=== PATIENT | female | born 1955 | race Caucasian/White ===

== ENCOUNTER → 2017-05-21 15:06 | Outpatient (CLI) | payer OTHER, SELFPAY ==
--- NOTE | 2017-05-21 15:14 | XR_ITS ---
XR foot LT min 3V HISTORY: ITS.REASON: CALCANEAL SPUR OF LEFT FOOT ORDERING PHYSICIAN: Umu Carvalho MD PATIENT AGE: 62 years COMPARISON: None FINDINGS: No fracture or dislocation. No lytic or blastic change. There is normal mineralization.. The joint spaces are well-preserved. No significant degenerative/arthritic changes. No erosive changes evident. There is a small calcaneal spur of approximately 3 mm with no obvious erosive change. IMPRESSION: Small calcaneal spur otherwise negative left foot
== END ==
PROVIDERS: PCP Family Medicine; Visit Provider Family Medicine
DX: M77.32 Calcaneal spur, left foot (principal)
CPT/HCPCS: 73630

== ENCOUNTER → 2018-02-19 16:42 | Outpatient (CLI) | payer OTHER, SELFPAY ==
--- NOTE | 2018-02-19 16:47 | MM_ITS ---
MM Dig screening mamm BI w/CAD ORDERING PHYSICIAN : Umu Carvalho MD PATIENT AGE: 62 years GENDER: Female COMPARISON: March [id number], May INDICATION: ITS.REASON: SCREENING. Does take estrogen no new complaints. Family history. Sister with breast cancer age 40. TECHNIQUE: Standard CC and MLO images were obtained. Additional axillary cc views bilateral R2 CAD reviewed. FINDINGS: Moderately dense breast pattern bilaterally. It mammography slight decreased sensitivity in breast moderately dense character. Overall Stable appearance with stable fibroglandular pattern with no new areas of significant concern.. Dominant nor suspicious mass. No suspicious calcifications. RIGHT BREAST:No significant findings. Follow-up one year LEFT BREAST: . Stable density retroareolar region on MLO view. No new areas of concern. IMPRESSION: Stable bilateral mammogram no new areas of concern BI-RADS Category: 2 Benign Finding(s) RECOMMENDED FOLLOW-UP: 1YR 1 YEAR FOLLOW-UP (A letter has been sent to the patient regarding results of the study.)
== END ==
PROVIDERS: PCP Family Medicine; Visit Provider Family Medicine
DX: Z12.31 Encounter for screening mammogram for malignant neoplasm of breast (principal); N64.9 Disorder of breast, unspecified
CPT/HCPCS: 77067

== ENCOUNTER → 2019-03-17 10:02 | Outpatient (CLI) | payer MEDICARE, BC, SELFPAY ==
--- NOTE | 2019-03-17 10:07 | MM_ITS ---
PROCEDURE: MM DIG SCREENING MAMM BI W/CAD CLINICAL INDICATION: SCREENING There is a history of breast cancer in patient's sister diagnosed at age 40. COMPARISON: [facility] DIG MAMM-SCREEN MANUEL from 05/29/2015 [facility] DIG MAMM-SCREEN MANUEL W/CAD from 01/06/2017 [facility] MM Dig screening mamm BI w/CAD from 02/19/2018 TECHNIQUE: Standard CC and MLO images were obtained. R2 CAD reviewed. FINDINGS: Prominent somewhat heterogenic fibroglandular densities are seen in the central portions of both breasts. The findings of bilateral and symmetrical. There is no new or suspicious lesion in either breast and no suspicious microcalcifications. IMPRESSION: Moderately dense parenchymal pattern with no suspicious lesions seen BI-RAD Category: 1 Negative FOLLOW-UP: 1YR 1 Year Follow-up (A letter has been sent to the patient regarding results of the study.) Dictated by: Dr. Mack Bernabe MD 03/20/2019 09:[address] Mack Bernabe MD in [place] 03/20/2019 09:47
== END ==
PROVIDERS: PCP Family Medicine; Visit Provider Family Medicine
DX: Z12.31 Encounter for screening mammogram for malignant neoplasm of breast (principal)
CPT/HCPCS: 77067

== ENCOUNTER → 2019-06-17 11:17 | Outpatient (CLI) | payer MEDICARE, BC, SELFPAY ==
--- NOTE | 2019-06-17 11:29 | XR_ITS ---
PROCEDURE: XR CHEST 2V CLINICAL HISTORY: ELEVATED WHITE BLOOD CELL, FEVER COMPARISON: No exams were available for comparison FINDINGS: The cardiomediastinal silhouette and pulmonary vascularity are within normal limits. The lungs are clear without infiltrates, suspicious nodules, or pleural effusions. No acute bony abnormalities. IMPRESSION: No acute findings. Dictated by: Dr. Mack Bernabe MD 06/17/2019 11:[address] Mack Bernabe MD in [place] 06/17/2019 11:54
== END ==
PROVIDERS: PCP Family Medicine; Visit Provider Family Medicine
DX: D72.828 Other elevated white blood cell count (principal); R50.9 Fever, unspecified
CPT/HCPCS: 71046

== ENCOUNTER → 2019-07-05 09:58 | Outpatient (CLI) | payer MEDICARE, BC, SELFPAY ==
--- NOTE | 2019-07-05 10:03 | XR_ITS ---
PROCEDURE: XR THORACIC SPINE 2V CLINICAL INDICATION: BACK PAIN COMPARISON: No exams were available for comparison FINDINGS: Normal alignment. No fracture or dislocation. There are mild degenerative changes in the midthoracic spine. No lytic or blastic change. IMPRESSION: Mild degenerative changes midthoracic spine otherwise negative Dictated by: Davide Saha MD 07/05/2019 13:10 Electronically signed by Davide Saha MD in [place] 07/05/2019 13:10
== END ==
PROVIDERS: PCP Family Medicine; Visit Provider Family Medicine
DX: M54.6 Pain in thoracic spine (principal)
CPT/HCPCS: 72070

== ENCOUNTER → 2019-07-19 15:22 | Outpatient (CLI) | payer MEDICARE, BC, SELFPAY ==
--- NOTE | 2019-07-22 10:51 | PC.NURSE ---
Notified Dr Cowan's office of negative COVID test. Notified patient at this time of negative results as well. Results faxed to [facility] at this time.
[2019-07-22 15:24] LABS: Covid-19 Nasal PCR Sendout Lex NOT DETECTED
== END ==
PROVIDERS: Visit Provider Family Medicine
DX: R05 Cough (principal)

== ENCOUNTER → 2019-07-26 12:58 | Outpatient (CLI) | payer MEDICARE, BC, SELFPAY ==
--- NOTE | 2019-07-26 13:12 | CT_ITS ---
PROCEDURE: CT ABDOMEN PELVIS WO/W CON CLINICAL INDICATION: ABD PAIN,NAUSEA Intermittent lower and mid abdominal pain COMPARISON: No exams were available for comparison TECHNIQUE: IV Contrast: 75ML OPTIRAY 350 Oral Contrast none Axial images obtained with sagittal and coronal reformats. All CT scans at the facility use one or more dose reduction, viz: automated exposure control, ma/kV adjustment per patient size (including targeted exams where dose is matched to indication, i.e. head), or iterative reconstruction technique. FINDINGS: LOWER THORAX: There are mild atelectatic or fibrotic changes in the right lung base. ABDOMEN & PELVIS: The the liver, gallbladder spleen and adrenal glands are unremarkable. There is a small hypodensity in the mid aspect of the body of the pancreas at 4 mm consistent with a small cystic lesion which is nonspecific. There is a cluster small stones in the mid aspect of the right kidney measuring up to 4 mm with some cortical scarring peripheral to this region. There is a small right renal cyst at 5 mm. There are mildly prominent retroperitoneal lymph nodes measuring up to 2 cm in the aortocaval area. There is irregular increased soft tissue density along the anterior abdominal wall consistent with omental mass/cake which spans a with of approximately 14 cm and measures up to 2 cm in thickness consistent with metastatic disease to the omentum. Omental involvement with soft tissue lesions also present lateral to the [place] flexure and in the left upper quadrant laterally. There is no evidence of bowel obstruction. No evidence of appendicitis. There is diffuse colonic diverticulosis but no evidence of diverticulitis. There is a complex central pelvic mass having both cystic and solid components with enlargement of both ovaries the right larger than left. The right adnexal cystic and solid mass measures up to 10 cm cephalad caudad and 9 cm AP. The left adnexal mass measures up to 5.3 cm AP and 6 cm cephalad caudad. These are inseparable from the uterus. There is a small amount of fluid in the pelvis. No acute bony findings. No lytic or blastic bony lesions identified. IMPRESSION: 1. Complex bilateral cystic and solid adnexal masses inseparable from the uterus along with omental masses and retroperitoneal adenopathy consistent with neoplasm. This could be either ovarian carcinoma with metastatic disease to the mesenteries and retroperitoneal lymph nodes. The adnexal masses could also be due to metastatic disease to the ovaries/Krukenberg tumor as well as the omentum and retroperitoneal lymph nodes. Gynecological/surgical consult suggested. 2. Other nonacute findings as described above including a 4 mm nonspecific cystic lesion of the pancreas, right nephrolithiasis and diffuse colonic diverticulosis without diverticulitis. Dictated by: Davide Saha MD 07/27/2019 10:30 Electronically signed by Davide Saha MD in [place] 07/27/2019 10:30
[2019-07-26 13:23] LABS: Blood Urea Nitrogen 10 mg/dl (7-17); Estimated Glomerular Filt Rate 72 ml/min (>60); GFR (African American) 87 ML/MIN (>60)
== END ==
PROVIDERS: Visit Provider Family Medicine
DX: R10.9 Unspecified abdominal pain (principal); R11.0 Nausea
CPT/HCPCS: 36415; 74178; 82565; 84520; Q9967

== ENCOUNTER → 2020-02-15 12:57 | Outpatient (CLI) | payer MEDICARE, BC, SELFPAY ==
--- NOTE | 2020-02-15 13:01 | CT_ITS ---
PROCEDURE: CT ABDOMEN PELVIS W CON CLINICAL INDICATION: ABD PAIN Mid epigastric pain through the pelvis. History of ovarian cancer COMPARISON: CT CT ABDOMEN PELVIS WO/W CON from 07/26/2019 TECHNIQUE: IV Contrast: 75ML Isovue 370 Oral Contrast None Axial images obtained with sagittal and coronal reformats. All CT scans at the facility use one or more dose reduction, viz: automated exposure control, ma/kV adjustment per patient size (including targeted exams where dose is matched to indication, i.e. head), or iterative reconstruction technique. FINDINGS: LOWER THORAX: Chronic changes are present in the right lung base. ABDOMEN & PELVIS: There are several subtle slight hypodense lesions of the liver which have developed since 07/26/2019 suspicious for metastatic disease. The largest lesion is 1.8 cm and is in the medial segment of the left hepatic lobe segment 8. A 7 mm hypodense lesion is present in the right hepatic lobe and an additional 1.7 cm lesion in the right hepatic lobe anteriorly and 1 cm lesion right hepatic lobe anteriorly. The spleen, adrenal glands, pancreas, have an unremarkable appearance. There are 3 small calculi in the mid polar region of the right kidney with some adjacent cortical scarring. There is a retro aortic left renal vein is a normal variant. There is a mild amount of retained colonic feces. No intestinal obstruction or free air is evident. There are scattered colonic diverticula. No evidence of diverticulitis. Small amount fluid is present in the pelvis. There are post hysterectomy changes. Postsurgical changes are present involving the anterior abdominal wall with some diastasis noted in the supraumbilical region. There was previously noted some omental thickening which is not identified on today's exam. There are some unopacified bowel loops noted which could obscure or mimic pathology. No acute bony findings. IMPRESSION: 1. There are 4 new hypodense lesions of the liver suspicious for metastatic foci. 2. Interval hysterectomy and bilateral oophorectomy. There is a small amount fluid in the pelvis. Previously noted omental thickening is no longer apparent. 3. Postsurgical changes of the anterior abdominal wall with some minimal diastasis of the abdominal wall superior to the umbilicus. Dictated by: Davide Saha MD 02/15/2020 14:36 Davide Saha MD in [place] 02/15/2020 14:36
== END ==
PROVIDERS: PCP Family Medicine; Visit Provider Family Medicine
DX: R10.9 Unspecified abdominal pain (principal)
CPT/HCPCS: 74177; Q9967

== ENCOUNTER → 2020-03-10 08:38 | Outpatient (CLI) | payer MEDICARE, BC, SELFPAY ==
[2020-03-10] VITALS (13 sets, daily range): BP systolic 99–134; BP diastolic 40–86; PULSE 70–100; RESP 16–17; TEMP 36.6–37.4; O2SAT 95–99; BMI 29.1
--- NOTE | 2020-03-10 09:47 | PC.NURSE ---
blood consent obtained.
[2020-03-10 15:14] LABS: Hematocrit 30.6 % (37.0-47.0); Hemoglobin 9.2 g/dL (12.2-16.2)
== END ==
LOC: LAB 08:40 → INF 09:31
PROVIDERS: PCP Family Medicine; Visit Provider Family Medicine
DX: D64.9 Anemia, unspecified (principal)
CPT/HCPCS: 36415; 85014; 85018; 86850; P9016

== ENCOUNTER 2020-03-17 13:53 | Inpatient (IN) | payer MEDICARE, BC, SELFPAY ==
[2020-03-17] VITALS (9 sets, daily range): BP systolic 100–137; BP diastolic 53–82; PULSE 86–111; RESP 15–24; TEMP 36.4–38.1; O2SAT 90–98; BMI 29.8; BMI 30.2
--- NOTE | 2020-03-17 14:02 | XR_ITS ---
PROCEDURE: XR CHEST PORTABLE CLINICAL HISTORY: weakness Chest pain COMPARISON: CR XR CHEST 2V from 06/17/[address] ABDOMEN PELVIS W CON from 02/15/2020 FINDINGS: The cardiomediastinal silhouette and pulmonary vascularity are within normal limits. There is a small left pleural effusion which has developed in the interval. There is some mild atelectatic change the left lower lung zone laterally. There is some density in the right lung base probably related to vascular crowding from the low lung volumes. Upper lobes are clear. No acute bony abnormalities. IMPRESSION: New small left pleural effusion with left basilar atelectasis Dictated by: Davide Saha MD 03/17/2020 14:28 Davide Saha MD in [place] 03/17/2020 14:28
[2020-03-17 14:20] LABS: Adenovirus F 40/41, stool Not Detected (NotDetected); Appearance,Urine CLEAR (Clear); Astrovirus Not Detected (NotDetected); Bilirubin,Urine Negative (Negative); Blood, Urine 2+ (Negative); Campylobacter Not Detected (NotDetected); Clostridium Difficile A/B, PCR Not Detected (NotDetected); Color,Urine YELLOW (Yellow); Cryptosporidium Not Detected (NotDetected); Cyclospora Cayetanesis Not Detected (NotDetected); Entamoeba histolytica Not Detected (NotDetected); Enteroaggregative E coli Not Detected (NotDetected); Enteropathogenic E coli Not Detected (NotDetected); Enterotoxigenic E coli Not Detected (NotDetected); Giardia lamblia Not Detected (NotDetected); Glucose,Urine (UA) Negative (Negative); Ketones,Urine Negative (Negative); Leukocyte Esterase,Urine Negative (Negative); Microscopic, Urine URINE MICROSCOPIC (MICROSCOPIC); Nitrate,Urine Negative (Negative); Norovirus Not Detected (NotDetected); PH,Urine 6.5 (5.0-8.5); Plesimonas Shigalloides, PCR Not Detected (NotDetected); Protein,Urine Negative (Negative); Rotavirus A Not Detected (NotDetected); Salmonella, PCR Not Detected (NotDetected); Sapovirus Not Detected (NotDetected); Shiga-like toxin E coli Not Detected (NotDetected); Shigella Enterovasive E coli Not Detected (NotDetected); Specific Gravity, Urine <= 1.005 (1.005-1.030); Urobilinogen,Urine 0.2 EU/dl (0.2); Vibrio Cholerae Not Detected (NotDetected); Vibrio, PCR Not Detected (NotDetected); Yersinia Entercolitica, PCR Not Detected (NotDetected)
--- NOTE | 2020-03-17 14:23 | ECG_ITS ---
APPROVED REPORT Exam: Resting ECG HR:91 bpm ECG Measurements Heart Rate 91 AXES AK 152 P 39 QRSd 80 QRS 11 QT 374 T 27 QTc 460 Conclusion Normal sinus rhythm Normal ECG Electronically signed by : Kenny Campuzano, 03/18/2020 19:56:14
[2020-03-17 14:41] LABS: Alanine Aminotransferase 41 U/L (12-78); Albumin/Globulin Ratio 0.9 (1.1-1.8); Alkaline Phosphatase 187 U/L (38-126); Anion Gap 10.5 mEq/L (5-15); Aspartate Amino Transferase 46 U/L (14-36); Bilirubin,Total 1.2 mg/dl (0.2-1.3); Blood Urea Nitrogen 9 mg/dl (7-17); Calcium 8.5 mg/dl (8.4-10.2); Carbon Dioxide 32 mmol/L (22.0-30.0); Chloride 83 mmol/L (98-107); Creatinine Clearance Estimated 65 mL/min (50-200); Estimated Glomerular Filt Rate 100 ml/min (>60); GFR (African American) 121 ML/MIN (>60); Globulin 3.3 g/dL (1.3-3.2); Glucose 170 mg/dl (74-100); Lipase 27 U/L (23-300); Potassium 3.5 mmoL/L (3.5-5.1); Sodium 122 mmol/L (136-145); Total Protein,Serum 6.3 g/dl (6.3-8.2)
[2020-03-17 14:43] LABS: Lactic Acid 1.9 mmol/L (0.7-2.1)
[2020-03-17 14:45] LABS: Amylase < 30 U/L (30-110)
[2020-03-17 14:55] LABS: Troponin I < 0.01 ng/ml (0.00-0.034)
[2020-03-17 14:56] LABS: Basophils # 0.1 K/mm3 (0-0.2); Basophils % 0.3 % (0.1-2.0); Eosinophils # 0.1 K/mm3 (0.0-0.4); Eosinophils % 0.5 % (0.1-12.0); Hematocrit 27.9 % (37.0-47.0); Hemoglobin 8.5 g/dL (12.2-16.2); Lymphocytes # 0.9 K/mm3 (0.7-4.5); Lymphocytes % 5.1 % (10-50); Mean Corpuscular HGB Conc 30.4 g/dL (31.8-35.4); Mean Corpuscular Hemoglobin 28.3 pg (27.0-31.2); Mean Corpuscular Volume 93.1 fl (81-99); Monocytes % 5.5 % (1.7-9.3); Neutrophils # 15.7 K/mm3 (1.8-7.8); Neutrophils % 88.6 % (37.0-80.0); Platelet Count 247 K/mm3 (142-424); Red Cell Distribution Width 16.6 % (11.5-17.5); White Blood Count 17.8 K/mm3 (4.8-10.8)
[2020-03-17 14:58] LABS: MANUAL DIFFERENTIAL MANUAL DIFFERENTIAL (MANUAL DIFF)
--- NOTE | 2020-03-17 15:00 | PC.NURSE ---
at bedside updated on plan of care
[2020-03-17 15:01] LABS: Lymphocytes % 3 % (10-50); Monocytes % 6 % (2-9); Neutrophils % 87 % (42-76); Platelet Estimate Normal; RBC Morphology Normal; Total Cells Counted 100
[2020-03-17 15:33] LABS: Coronavirus 19 IgG Antibody Negative (Negative); Coronavirus 19 IgM Antibody Negative (Negative)
--- NOTE | 2020-03-17 16:00 | PC.NURSE ---
pt resting pt up to bathroom per wheelchair.
--- NOTE | 2020-03-17 16:44 | HMH.EDGENADL ---
ED Disposition Clinical Impression: Hyponatremia Primary cancer of ovary with widespread metastatic disease Qualifiers: Laterality: unspecified laterality Qualified Code(s): C56.9 - Malignant neoplasm of unspecified ovary; C80.0 - Disseminated malignant neoplasm, unspecified Left lower lobe pneumonia Qualifiers: Pneumonia type: due to unspecified organism Qualified Code(s): J18.9 - Pneumonia, unspecified organism Disposition: Admitted As Inpatient Condition on Discharge: Fair Instructions: DI for Acute Abdomen Referrals: Kenny Shepard MD [Primary Care Provider] - - Critical Care Critical Care Time: No Attestation: On 03/17/20, the high probability of a clinically significant, sudden or life threatening deterioration of the following system(s) required my full and direct attention, intervention and personal management. The time I documented below is in addition to time spent performing reported procedures but includes the following listed in this critical care notation. Medical Decision Making - Medical Records Medical records reviewed: Yes: I reviewed the patient's medical records. - Bernabe Inquiry Pt receiving controlled substance: Yes Bernabe was queried for this patient: No Reason not queried -: Emergent pt cond-no time Risks and benefits of using a controlled substance: were discussed with pt by me Vital Signs: 03/17/20 13:54 Temperature 98.6 F Temperature Source Oral Pulse Rate [Radial] 94 H Respiratory Rate 16 Blood Pressure [Right Arm] 125/82 Blood Pressure Mean [Right Arm] 96 Blood Pressure Position [Right Arm] Sitting 02 Sat by Pulse Oximetry 97 Oxygen Delivery Method Room Air - Lab Data Lab Results 03/17/20 14:05: Urine Color Yellow, Urine Appearance Clear, Urine pH 6.5, Ur Specific [place] <= 1.005, Urine Protein Negative, Urine Glucose (UA) Negative, Urine Ketones Negative, Urine Blood 2+, Urine Nitrate Negative, Urine Bilirubin Negative, Urine Urobilinogen 0.2, Ur Leukocyte Esterase Negative, Urine RBC 5-10, Urine WBC None, Ur Squamous Epith Cells 10-20, Urine Bacteria None 03/17/20 14:21: WBC 17.8 H, RBC 3.00 L, Hgb 8.5 L, Hct 27.9 L, MCV 93.1, MCH 28.3, MCHC 30.4 L, RDW 16.6, Plt Count 247, MPV 9.0, Neut % (Auto) 88.6 H, Lymph % (Auto) 5.1 L, [place] % (Auto) 5.5, Eos % (Auto) 0.5, Baso % (Auto) 0.3, Neut # (Auto) 15.7 H, Lymph # (Auto) 0.9, [place] # (Auto) 1.0, Eos # (Auto) 0.1, Baso # (Auto) 0.1, Total Counted 100, Neutrophils % (Manual) 87 H, Band Neutrophils % 4.0, Lymphocytes % (Manual) 3 L, Monocytes % (Manual) 6, Platelet Estimate Normal, RBC Morphology Normal 03/17/20 14:21: Sodium 122 L, Potassium 3.5, Chloride 83 L, Carbon Dioxide 32 H, Anion Gap 10.5, BUN 9, Creatinine 0.60, Estimated Creat Clear 65, Estimated GFR 100, Est GFR ( Amer) 121, Glucose 170 H, Calcium 8.5, Total Bilirubin 1.2, AST 46 H, ALT 41, Alkaline Phosphatase 187 H, Troponin I < 0.01, Total Protein 6.3, Albumin 3.0 L, Globulin 3.3 H, Albumin/Globulin Ratio 0.9 L, Amylase < 30 L, Lipase 27 03/17/20 14:21: Lactate 1.9 03/17/20 14:21: SARS-CoV-2 IgG Ab (Rapid) Negative, SARS-CoV-2 IgM Ab (Rapid) Negative Result diagrams: 03/17/20 14:21 03/17/20 14:21 Orders (Tests/Meds): ED MEDICATIONS Generic Name Dose Route Start Last Admin Trade Name Freq PRN Reason Stop Dose Admin Ceftriaxone Sodium 1 gm/ 50 mls @ 100 mls/hr 03/17/20 16:45 Sodium Chloride IV 03/31/20 16:44 Q24H [facility] Protocol Doxycycline Hyclate 100 mg/ 250 mls @ 166.667 mls/hr 03/17/20 16:45 Sodium Chloride IV 03/31/20 16:44 Q12H [facility] Protocol ORDERS Category Date Time Status Diarrhea 6-11 Panel, Cdiff PCR Stat Lab 03/17/20 14:05 Received Troponin I Q3H Lab 03/17/20 17:15 Ordered Troponin I Q3H Lab 03/17/20 20:15 Ordered Blood Culture Stat Micro 03/17/20 14:21 Received - Radiology Data #1 Image(s): Chest Image Reviewed: Yes I reviewed the patient's radiology results, Yes I reviewed the pa
--- NOTE | 2020-03-17 17:00 | PC.NURSE ---
pt and family updated on plan of care
--- NOTE | 2020-03-17 18:00 | PC.NURSE ---
pt updated on plan of care
--- NOTE | 2020-03-17 18:50 | PC.NURSE ---
report to messi rios
[2020-03-17 19:11] LABS: Procalcitonin 0.558 ng/mL (0.0-2.0)
--- NOTE | 2020-03-17 22:16 | PC.NURSE ---
Spoke with Piotr Cardenas, Pharm manager social responsibility at this time. Gave okay to administer the Vibramycin per JUN this evening.
[2020-03-17 23:36] LABS: POC Glucose,Bedside 97 (70-110)
[2020-03-18] VITALS (24 sets, daily range): BP systolic 94–148; BP diastolic 53–81; PULSE 93–118; RESP 14–93; TEMP 36.4–38.3; O2SAT 90–99; BMI 29.9
--- NOTE | 2020-03-18 00:30 | PC.NURSE ---
Spoke with Eryn SCHWARTZ while on floor at this time. Pt requesting for home med Gabapentin to be reordered and administered at 0100. She currently takes Gabapentin 300 mg PO TID. gave okay to restart Gabapentin at this time.
--- NOTE | 2020-03-18 01:30 | PC.NURSE ---
Pt status changed to DNR at this time. Consent signed and verified with 2 RN at bedside with pt. DNR bracelet in place to left wrist.
--- NOTE | 2020-03-18 02:43 | PC.NURSE ---
Spoke with Eryn SCHWARTZ at this time. Pt noted with elevated low grade temp of 100.6 F. Decreased room temp and placed cold wash cloth to pt's forehead. removed all blankets from pt at this time. Upon reassessment of temp, continued to be low grade at 100.6 F. gave okay to administer Tylenol 650 PO Q6H for fever. Pt reported abdominal pain, rating 8/10 on pain scale. Administered Dilaudid, pushed slow IV. Pt then c/o nausea. Administered Zofran IV per JUN x1. Pt tolerated both well. Now resting in bed with eyes closed and no further complaints. Rechecked temp prior to admin of Tylenol, temp noted at 98.6 F. No Tylenol administered at this time. Will continue to monitor.
--- NOTE | 2020-03-18 04:40 | PC.NURSE ---
Pt is alert and oriented x4. Pt rested well with eyes closed for majority of shift. Upon trying to ask pt the admission questions, pt was unable to stay awake long enough to fully comprehend the questions that were being asked. Pt noted very lethargic. Able to answer LOC questions appropriately, but states she is very tired . Follows commands appropriately. Bilateral hand development advisor noted equal and strong. Bilateral lungs noted clear t/o upon auscultation. Pt tolerated RA well, does get SOA when talking in long periods. Abdomen noted with firm nodules above umbilicus midline to body. Pt states my doctor found these hard spots . Denies N/V. States she did have loose stools upon arrival to ER. No loose stools noted since. Pending diarrhea panel, contact enteric precautions in place. Refused teds. No edema. Ambulates well with assist x1 to bathroom. General weakness noted. VSS. Remains safe. Call light within reach. Will continue to monitor.
--- NOTE | 2020-03-18 04:49 | PC.NURSE ---
Home meds in drawer, needs to be verified with pharm this am.
[2020-03-18 06:31] LABS: POC Glucose,Bedside 114 (70-110)
[2020-03-18 08:46] LABS: Basophils % 0.2 % (0.1-2.0); Eosinophils # 0.4 K/mm3 (0.0-0.4); Eosinophils % 2.1 % (0.1-12.0); Hematocrit 26.3 % (37.0-47.0); Lymphocytes # 1.3 K/mm3 (0.7-4.5); Lymphocytes % 7.5 % (10-50); Mean Corpuscular HGB Conc 29.7 g/dL (31.8-35.4); Mean Corpuscular Hemoglobin 28.1 pg (27.0-31.2); Mean Corpuscular Volume 94.6 fl (81-99); Monocytes # 1.1 K/mm3 (0.1-1.0); Monocytes % 6.2 % (1.7-9.3); Neutrophils # 14.3 K/mm3 (1.8-7.8); Platelet Count 221 K/mm3 (142-424); Red Blood Count 2.78 M/mm3 (4.20-5.40); Red Cell Distribution Width 16.3 % (11.5-17.5); White Blood Count 17.1 K/mm3 (4.8-10.8)
[2020-03-18 08:49] LABS: Hemoglobin 7.8 g/dL (12.2-16.2)
[2020-03-18 08:50] LABS: MANUAL DIFFERENTIAL MANUAL DIFFERENTIAL (MANUAL DIFF)
[2020-03-18 08:58] LABS: Chloride 90 mmol/L (98-107); Potassium 3.7 mmoL/L (3.5-5.1); Sodium 128 mmol/L (136-145)
[2020-03-18 09:01] LABS: Alanine Aminotransferase 31 U/L (12-78); Albumin Level 2.7 g/dl (3.5-5.0); Albumin/Globulin Ratio 0.8 (1.1-1.8); Alkaline Phosphatase 163 U/L (38-126); Anion Gap 11.7 mEq/L (5-15); Aspartate Amino Transferase 29 U/L (14-36); Bilirubin,Total 0.9 mg/dl (0.2-1.3); Blood Urea Nitrogen 11 mg/dl (7-17); Carbon Dioxide 30 mmol/L (22.0-30.0); Creatinine Clearance Estimated 64 mL/min (50-200); Estimated Glomerular Filt Rate 100 ml/min (>60); GFR (African American) 121 ML/MIN (>60); Globulin 3.3 g/dL (1.3-3.2)
[2020-03-18 09:02] LABS: Calcium 8.3 mg/dl (8.4-10.2); Glucose 108 mg/dl (74-100)
--- NOTE | 2020-03-18 09:51 | HMH.HP ---
*Admission Date: 03/17/20 *Chief complaint: Lightheadedness *History of present illness: 64-year-old female with history of ovarian cancer that now appears to have shown recurrence and metastases to the liver presented to the emergency department due to lightheadedness at home with fear that she was going to pass out. Work-up in the emergency department did discover new hyponatremia. White blood cell count was elevated although review of records shows this has been chronic over at least the last month. Chest x-ray showed some atelectasis in the left lung base. Patient was not hypoxic. This morning she denies cough, fevers at home. Patient did not feel like her family was going to be able to care for her at home, which is another reason she came to the emergency department. This morning she reports she is very cold. She saw her oncologist on March 16. At that visit she and her oncologist reviewed a CT scan performed the same day which appeared to show worsening metastatic lesions in the liver. Patient is accepting of her diagnosis and would prefer to just not be in any pain. [facility] History I have reviewed the patient's past medical history: Yes Medical History: Reports:: Cancer (Ovarian with metastases to the liver), Hyperlipidemia, Hypertension Denies:: Diabetes Mellitus Type 1, Diabetes Mellitus Type 2, MRSA *Have you ever received a pneumonia vaccine?: No (Pt unable to answer) *Have you received a flu vaccine this season?: No (Pt unable to answer) Other Medical History: Reports: Thyroid Disease Amputation: No Fractures: No - *Social History Smoking Status: Never smoker Alcohol Intake: never Substance Use Type: denies use *Occupational Status:: disabled Housing: house Household Members: spouse *Travel in the last 8 weeks: None Family Hx:: Unable to obtain Review of Systems - Constitutional Reports body ache(s), Reports chills, Reports lack of energy, Reports malaise, Reports weakness - Eyes Denies blind spots, Denies blurry vision - ENT Denies abnormal hearing, Denies bleeding gums - *Cardiovascular Denies chest pain, Denies chest pain at rest, Denies chest pain with activity, Denies shortness of breath with activity - *Respiratory Denies change in phlegm color, Denies chest congestion, Denies cough, Denies shortness of breath - *Gastrointestinal Reports abdominal pain, Reports bloating, Reports change in bowel habits, Reports change in stools, Reports difficulty swallowing, Reports feeling full early - *Genitourinary Denies difficulty urinating - *Musculoskeletal Denies abnormal walking, Denies joint pain - Integumentary/Breasts Reports hair loss (From chemotherapy) - *Neurologic Reports weakness, Denies abnormal walking, Denies abnormal hearing, Denies headache(s) Meds Home Medications Medication Instructions Recorded Confirmed Type atorvastatin 20 mg tablet 20 mg PO DAILY 90 Days tab 06/03/18 03/17/20 History levothyroxine 50 mcg tablet 50 mcg PO DAILY 06/03/18 03/17/20 History lisinopril 5 mg tablet 5 mg PO DAILY 90 Days tab 06/03/18 03/17/20 History triamterene 37.5 1 tab PO DAILY 30 Days tab 06/03/18 03/17/20 History mg-hydrochlorothiazide 25 mg tablet Gabapentin [Gabapentin 300mg Cap] 300 mg PO TID 03/17/20 03/17/20 History Allergies Allergy/AdvReac Type Severity Reaction Status Date / Time No Known Allergies Allergy Unverified 02/15/20 14:02 Exam Vital signs and Labs for Last 24 Hours: Temp Pulse Resp BP Pulse Ox 97.5 F L 93 H 16 113/72 95 03/18/20 08:00 03/18/20 08:00 03/18/20 08:00 03/18/20 08:00 03/18/20 08:00 Laboratory Results - last 24 hr 03/17/20 14:05: Urine Color Yellow, Urine Appearance Clear, Urine pH 6.5, Ur Specific [place] <= 1.005, Urine Protein Negative, Urine Glucose (UA) Negative, Urine Ketones Negative, Urine Blood 2+, Urine Nitrate Negative, Urine Bilirubin Negative, Urine Urobilinogen 0.2, Ur Leukocyte Esterase Negative, Urine RBC 5-10
[2020-03-18 10:54] LABS: Eosinophils % 2 % (0-3); Lymphocytes % 11 % (10-50); Monocytes % 2 % (2-9); Neutrophils % 84 % (42-76); Total Cells Counted 100
[2020-03-18 10:55] LABS: Acanthocytes 1+; Platelet Estimate Normal; Poikilocytosis 1+; Stomatocytes 1+
[2020-03-18 12:21] LABS: Procalcitonin 0.654 ng/mL (0.0-2.0)
--- NOTE | 2020-03-18 14:36 | P.CONPHA_ITS ---
[facility] Pharmacy VTE Monitoring - Patient Demographics Admission date: 03/17/20 Report Date: 03/18/20 Time: 14:36 Allergies/Adverse Reactions: Patient Allergies No Known Allergies Allergy (Unverified 02/15/20 14:02) Height: 1.57 m Weight: 73.709 kg Patient Problems: Current Active Problems Primary cancer of ovary with widespread metastatic disease (Acute) Hyponatremia (Acute) Anemia (Chronic) - VTE Risk Labs: VTE Related Lab Results Hgb 7.8 g/dL (12.2-16.2) L* 03/18/20 07:30 Hct 26.3 % (37.0-47.0) L 03/18/20 07:30 Plt Count 221 K/mm3 (142-424) 03/18/20 07:30 BUN 11 mg/dl (7-17) 03/18/20 07:30 Creatinine 0.60 mg/dl (0.52-1.04) 03/18/20 07:30 Estimated Creat Clear 64 mL/min (50-200) 03/18/20 07:30 Was VTE Risk Assessment Performed: Yes VTE Score: 7 VTE Risk Level: Moderate Risk - Prophylaxis VTE Prophylaxis Ordered?: Yes Types of VTE Prophylaxis: TEDS Knee High Location of Applied Device: Bilateral Lower Extremeties
--- NOTE | 2020-03-18 14:50 | HMH.PHAINT ---
MEDICATION RECONCILIATION COMPLETED ON PATIENT USING EXTERNAL FILL HISTORY FROM PHARMACY, PATIENT'S OWN RX BOTTLES, AND PATIENT INTERVIEW. -FALLON VASQUEZD
--- NOTE | 2020-03-18 20:19 | PC.NURSE ---
DR. LAL AT BEDSIDE INFORMED THIS RN THAT PATIENT WOULD BE RECEIVING 2 UNITS OF BLOOD. THIS RN PHONED LAB TO INQUIRED WHEN BLOOD WILL BE READY. PER LAB, THERE WAS NOT AN ORDER TO TRANSFUSE BLOOD, JUST AN ORDER FOR TYPE AND SCREEN. THIS RN PUT IN ORDER FOR TRANSFUSION. PATIENT RECEIVED FIRST UNIT DURING THIS RN SHIFT. PATIENT TOLERATED WELL. PATIENT HAS BEEN FATIGUED DURING THIS RN SHIFT. WITH EACH MEAL THIS RN ENCOURAGED PATIENT TO EAT AND DRINK. PATIENT WOULD TAKE ONE BITE AND THEN FELL ASLEEP. THIS RN ENCOURAGED PATIENT TO TRY TO GET SOME NUTRIENTS IN HER BODY. PATIENT VERBALIZED AN UNDERSTANDING BUT STATED THAT SHE IS JUST TOO TIRED. PATIENT A&O X4, LUNGS CLEAR, PULSES EQUAL. NO NEW CONCERNS AT THIS TIME.
[2020-03-18 23:01] LABS: POC Glucose,Bedside 112 (70-110)
[2020-03-19] VITALS: BP 118/67; PULSE 85; RESP 14; TEMP 36.6; O2SAT 92
[2020-03-19 00:18] LABS: Hematocrit 31.6 % (37.0-47.0)
[2020-03-19 00:28] LABS: Hemoglobin 10.2 g/dL (12.2-16.2)
[2020-03-19 04:00] VITALS: BP 101/67; PULSE 91; RESP 16; TEMP 36.5; O2SAT 94
[2020-03-19 05:25] VITALS: BMI 30.7
[2020-03-19 06:20] LABS: POC Glucose,Bedside 106 (70-110)
--- NOTE | 2020-03-19 06:59 | PC.NURSE ---
Pt is alert and oriented x4. Pt noted very fatigued this shift. C/o moderate abdominal pain, rating 8/10 on pain scale. Requesting Dilaudid per MAR. Pt tolerated well. Rested well with eyes closed for a few hours after receiving blood and pain meds. No further c/o pain. Tolerated RA well and 0.5 PRN. VSS. Remains safe. Call light within reach. Will continue to monitor.
--- NOTE | 2020-03-19 07:25 | SW/DCPLANNER ---
Addendum entered by Gabriella Flores 03/19/20 08:45: SPOKE WITH AFTER HAVING A CONVERSATION WITH PATIENT TO COORDINATE A TIME FOR HIM TO BE HERE WHEN HOSPICE COMES.. PATIENT IS VERY WEAK, BUT ANSWERS QUESTIONS APPROPRIATELY.. SHE DID REQUEST A BED AND 02... THIS WILL BE PROVIDED AND SET UP PRIOR TO PATIENT DISCHARGING TO HOME... Original Note: RECEIVED REFERRAL FOR A HOSPICE CONSULT FOR THIS PATIENT: SENT IT TO [facility] AND HAVE ASKED FOR SOMEONE TO LET ME KNOW THE TIME THEY CAN COME TO EVALUATE SO I CAN LET THE PATIENT AND FAMILY KNOW.... PATIENT WILL RETURN HOME ONCE HOSPICE SEE HER ..
--- NOTE | 2020-03-19 07:34 | HMH.ACPN2 ---
Internal Medicine - PN: Subj *Date: 03/19/20 *Time: 07:34 Interval history: Patient complains of being cold again this morning. She is weak. Attempts to eat have not been very successful as patient has significant bloating and abdominal discomfort. Exam Vital signs and Labs for Last 24 Hours: Temp Pulse Resp BP Pulse Ox 97.7 F 91 H 16 101/67 L 94 L 03/19/20 04:00 03/19/20 04:00 03/19/20 04:00 03/19/20 04:00 03/19/20 04:00 Laboratory Results - last 24 hr 03/18/20 07:30: WBC 17.1 H, RBC 2.78 L, Hgb 7.8 L*, Hct 26.3 L, MCV 94.6, MCH 28.1, MCHC 29.7 L, RDW 16.3, Plt Count 221, MPV 9.0, Neut % (Auto) 84.0 H, Lymph % (Auto) 7.5 L, Dade % (Auto) 6.2, Eos % (Auto) 2.1, Baso % (Auto) 0.2, Neut # (Auto) 14.3 H, Lymph # (Auto) 1.3, Dade # (Auto) 1.1 H, Eos # (Auto) 0.4, Baso # (Auto) 0.0, Total Counted 100, Neutrophils % (Manual) 84 H, Lymphocytes % (Manual) 11, Monocytes % (Manual) 2, Eosinophils % (Manual) 2, Metamyelocytes % 1.0, Platelet Estimate Normal, Poikilocytosis 1+, Stomatocytes 1+, Acanthocytes (Spur) 1+ 03/18/20 07:30: Sodium 128 L, Potassium 3.7, Chloride 90 L, Carbon Dioxide 30, Anion Gap 11.7, BUN 11, Creatinine 0.60, Estimated Creat Clear 64, Estimated GFR 100, Est GFR ( Amer) 121, Glucose 108 H D, Calcium 8.3 L, Total Bilirubin 0.9, AST 29 D, ALT 31, Alkaline Phosphatase 163 H, Total Protein 6.0 L, Albumin 2.7 L, Globulin 3.3 H, Albumin/Globulin Ratio 0.8 L 03/18/20 07:30: Procalcitonin 0.654 03/18/20 10:38: Blood Type A Positive, Antibody Screen Negative, Crossmatch ([facility]) See Detail 03/18/20 22:02: POC Glucose 112 H 03/18/20 23:59: Hgb 10.2 L D, Hct 31.6 L 03/19/20 06:05: POC Glucose 106 I & O for Last 24 hours: Intake & Output 03/16/20 03/17/20 03/18/20 03/19/20 11:59 11:59 11:59 11:59 Intake Total 676 / 676 950 / 950 Balance 676 / 676 950 / 950 Weight 162 lb 8 oz 167 lb - Constitutional no acute distress - *Routine Respiratory Exam Present: CTA bilaterally - *Routine Cardiovascular Exam Present: RRR - *Routine Abdominal Exam Present: soft, normoactive bowel sounds, tenderness (Bilateral lower quadrants), firm. 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 She is weaker today. Hospice has been consulted. She will have a hospice evaluation today with anticipate discharged home for further end-of-life care
[2020-03-19 08:00] VITALS: BP 145/73; PULSE 109; RESP 18; TEMP 36.8; O2SAT 95
[2020-03-19 08:08] LABS: Procalcitonin 0.583 ng/mL (0.0-2.0)
[2020-03-19 16:00] VITALS: BP 128/67; PULSE 104; RESP 17; TEMP 36.8; O2SAT 95
--- NOTE | 2020-03-19 17:01 | HMH.DCSUM ---
General - General Admission date:: 03/17/20 Discharge date: 03/19/20 HPI HPI: 64-year-old female with history of ovarian cancer that now appears to have shown recurrence and metastases to the liver presented to the emergency department due to lightheadedness at home with fear that she was going to pass out. Work-up in the emergency department did discover new hyponatremia. White blood cell count was elevated although review of records shows this has been chronic over at least the last month. Chest x-ray showed some atelectasis in the left lung base. Patient was not hypoxic. This morning she denies cough, fevers at home. Patient did not feel like her family was going to be able to care for her at home, which is another reason she came to the emergency department. This morning she reports she is very cold. She saw her oncologist on March 16. At that visit she and her oncologist reviewed a CT scan performed the same day which appeared to show worsening metastatic lesions in the liver. Patient is accepting of her diagnosis and would prefer to just not be in any pain. Hospital Course Hospital Course: Patient was admitted on Rocephin and azithromycin. Patient's white count has been chronically been elevated for the last month ranging from 13-15,000. White count was slightly higher on the day of admission but decreased following morning. However on exam patient did not have any rales consistent with pneumonia. At discharge no antibiotics will be prescribed. Patient has metastatic ovarian cancer with metastases to the liver which are causing significant abdominal pain, abdominal bloating, lack of appetite. Patient admitted that her pain was quite debilitating and depressing. We did discuss in about the prognosis of her cancer and she is accepting of her diagnosis as well as her poor prognosis and would prefer to be kept comfortable. Hospice was consulted and further home hospice care was arranged. Patient was discharged on March 19. Patient has been dealing with anemia for the last month. She had received 1 prior outpatient transfusion. Patient's hemoglobin was low on admission and likely 3 dilution from IV fluids was decreased even further to a level of 7.8. Patient was transfused 2 units of packed red blood cells which she tolerated well. Objective Vital signs: Temp Pulse Resp BP Pulse Ox 98.2 F 104 H 17 128/67 95 03/19/20 16:00 03/19/20 16:00 03/19/20 16:00 03/19/20 16:00 03/19/20 16:00 Results Labs on day of discharge: Labs from last 24 hours 03/19/20 03/19/20 03/18/20 06:05 06:00 23:59 Hgb 10.2 L D Hct 31.6 L POC Glucose 106 Procalcitonin 0.583 Blood Type Antibody Screen Crossmatch ([facility]) 03/18/20 03/18/20 22:02 10:38 Hgb Hct POC Glucose 112 H Procalcitonin Blood Type A Positive Antibody Screen Negative Crossmatch ([facility]) See Detail Preliminary micro results at discharge 03/17/20 14:21 Blood Culture - Preliminary Blood NO GROWTH AFTER 48 HOURS 03/17/20 14:21 Blood Culture - Preliminary Blood NO GROWTH AFTER 48 HOURS DS: Diagnosis - Discharge Diagnosis (1) Primary cancer of ovary with widespread metastatic disease Status: Acute (2) Anemia Status: Chronic (3) Hyponatremia Status: Acute (4) Left lower lobe pneumonia Status: Ruled-out Discharge Plan - Patient Discharge Instructions ACTIVITY: Continue current activity DIET: continue same diet Patient Instructions: Pneumonia-Adult, Ovarian Cancer, DI for Pneumonia -- Adult, DI for Ovarian Cancer - Follow up Plan Disposition: Hospice - Home Home Medications: Home Medications Medication Instructions Recorded Confirmed Type levothyroxine 50 mcg tablet 50 mcg PO DAILY 06/03/18 03/17/20 History lisinopril 5 mg tablet 5 mg PO DAILY 90 Days tab 06/03/18 03/17/20 History triamterene 37.5 1 tab PO DAILY 30 Days tab 06/03/18 03/17/20
== END 2020-03-19 17:29 | disposition home or self-care (01) | DRG 754 ==
LOC: ER 16:50 → 2ND 03-18 08:48
PROVIDERS: Admitting Provider Family Medicine; Emergency Provider Emergency Medicine; PCP Family Medicine; Visit Provider Family Medicine
DX: C56.9 Malignant neoplasm of unspecified ovary (principal); D60.0 Chronic acquired pure red cell aplasia; C80.0 Disseminated malignant neoplasm, unspecified; E87.1 Hypo-osmolality and hyponatremia; C78.7 Secondary malignant neoplasm of liver and intrahepatic bile duct; I10 Essential (primary) hypertension; E78.5 Hyperlipidemia, unspecified; G89.3 Neoplasm related pain (acute) (chronic)
CPT/HCPCS: 36415; 71045; 80053; 81001; 82150; 82962; 83605; 83690; 84145; 84484; 85007; 85014; 85018; 85025; 86328; 86850; 87040; 87506; 93005; 96365; 96375; 96376; 99285; J2405; P9016